=== PATIENT | female | born 1945 | race Two or more races ===

== ENCOUNTER 2021-04-11 08:45 | Inpatient (IN) | payer MEDICARE ==
[~2021-04-11] VITALS: Ht 165.1 cm; Wt 69.9 kg
[2021-04-11] MEDS ORDERED: PIPERACILLIN/TAZ 3.375G PREMIX 50 ML IV ONE (09:00)
[2021-04-11] MEDS ORDERED: VANCOMYCIN 1 G PREMIX 200 ML IV ONE (09:00)
[2021-04-11] MEDS ORDERED: DILTIAZEM HCL 5MG/ML 5ML VIAL IV ONE (09:15)
[2021-04-11] MEDS ORDERED: DILTIAZEM HCL 60MG TABLET PO ONE (09:30)
[2021-04-11] MEDS ORDERED: ENOXAPARIN 80MG/0.8ML SYR SUBCUT ONE (09:30)
[2021-04-11 09:31] LABS: BG BASE EXCESS -1.3 mmol/L (-2.0-2.0); BG CARBOXYHEMOGLOBIN 1.8 % (0.5-1.5); BG DEOXYHEMOGLOBIN 24.5 % (0.0-5.0); BG FRACTION INSPIRED OXYGEN 100; BG HCO3 ACT 21.5 mmol/L (22.0-26.0); BG METHEMOGLOBIN 0.3 % (0.0-1.5); BG OXYHEMOGLOBIN 73.4 % (94.0-97.0); BG PCO2 31.3 mmHg (35.0-45.0); BG PH 7.455 (7.350-7.450); BG PO2 41.1 mmHg (75.0-100.0); BG TOTAL HEMOGLOBIN 15.2 g/dL (12.0-18.0); BG VENT MODE MASK - NRB
[2021-04-11 09:31] LABS: HEMATOCRIT. 44.5 % (36.0-48.0); HEMOGLOBIN. 14.2 g/dL (12.0-16.0); MEAN CORPUSCULAR HEMOGLOBIN 28.7 pg (28.0-32.0); MEAN CORPUSCULAR VOLUME 89.9 fL (81.0-99.0); MEAN PLATELET VOLUME 9.1 fl (7.4-10.4); PLATELET 344 x1000/uL (130-400); RED BLOOD CELL COUNT 4.95 mill/uL (4.2-5.4); RED CELL DISTRIBUTION WIDTH 14.7 % (11.6-14.6)
[2021-04-11 09:38] LABS: CHLORIDE 102 mEq/L (98-107)
[2021-04-11] MEDS ORDERED: SODIUM BICARBONATE 8.4% 1 MEQ/ML 50ML SYR IV ONE ×3 (09:51→15:52)
[2021-04-11] MEDS ORDERED: EPINEPHRINE 0.1MG/ML (1:10,000) 10ML SYR ONE ×5 (09:51→14:48)
[2021-04-11] MEDS ORDERED: SUCCINYLCHOLINE CHLORIDE 200MG/10ML IV ONE ×2 (09:52→10:30)
[2021-04-11] MEDS ORDERED: ATROPINE SULFATE 1MG/10ML SYR ONE (09:52)
[2021-04-11] MEDS ORDERED: ETOMIDATE 2MG/ML 10ML VIAL IV ONE ×2 (09:52→10:30)
[2021-04-11 10:16] LABS: NUCLEATED RED BLOOD CELLS 1 /100 WBC; PLATELET ESTIMATE NORMAL
[2021-04-11] MEDS ORDERED: PROPOFOL 10MG/ML 100ML 100 ML IV ONE (10:30)
[2021-04-11] MEDS ORDERED: DEXTROSE 50% WATER 50ML SYRINGE IV ONE (10:47)
[2021-04-11] MEDS ORDERED: CALCIUM CHLORIDE 1GM/10ML SYR IV ONE (10:47)
[2021-04-11] MEDS ORDERED: NOREPINEPHRINE 8MG/250ML PMX 250 ML IV STA (11:05)
[2021-04-11 13:05] LABS: BG CARBOXYHEMOGLOBIN 0.6 % (0.5-1.5); BG DEOXYHEMOGLOBIN 71.1 % (0.0-5.0); BG FRACTION INSPIRED OXYGEN 100; BG METHEMOGLOBIN 0.9 % (0.0-1.5); BG OXYHEMOGLOBIN 27.4 % (94.0-97.0); BG PCO2 > 183.4 mmHg (35.0-45.0); BG PH < 6.680 (7.350-7.450); BG SAMPLE SITE RIGHT BRACHIAL; BG TOTAL HEMOGLOBIN 11.5 g/dL (12.0-18.0); BG VENT MODE VENT - P/C
[2021-04-11] MEDS ORDERED: SODIUM BICARBONATE 150 MEQ in SODIUM CHLORIDE 0.45% 1,000 ML IV SCH (13:15)
[2021-04-11] MEDS ORDERED: CLONIDINE 0.1MG TABLET PO PRN (14:00)
[2021-04-11] MEDS ORDERED: PIPERACILLIN/TAZ 3.375G PREMIX 50 ML IV SCH (14:00)
[2021-04-11] MEDS ORDERED: MAGNESIUM/ALUMINUM HYDROXIDE/SIMETHICONE 30ML UDC PO PRN (14:00)
[2021-04-11] MEDS ORDERED: DOCUSATE SODIUM 100MG CAPSULE PO PRN (14:00)
[2021-04-11] MEDS ORDERED: ALBUTEROL 6.7GM HFA INHALER ORI PRN (14:00)
[2021-04-11] MEDS ORDERED: ONDANSETRON HCL 4MG/2ML INJ IV PRN (14:00)
[2021-04-11] MEDS ORDERED: DEXT 5%/0.45% NACL 1000ML 1,000 ML IV SCH (14:00)
[2021-04-11] MEDS ORDERED: ACETAMINOPHEN 325MG TABLET PO PRN ×2 (14:00)
[2021-04-11] MEDS ORDERED: GUAIFENESIN 200MG/10ML SUGAR FREE UDC PO PRN (14:00)
[2021-04-11] MEDS ORDERED: NOREPINEPHRINE 8 MG in DEXT 5% WATER 242 ML IV PRN ×2 (14:00→15:15)
[2021-04-11] MEDS ORDERED: EPINEPHRINE 10 MG in SODIUM CHLORIDE 0.9% 240 ML IV PRN ×2 (14:15→16:45)
[2021-04-11] MEDS ORDERED: IPRATROPIUM/ALBUTEROL 0.5-3(2.5)MG/3ML NEB HHN PRN ×2 (14:15)
[2021-04-11 14:38] LABS: INR 1.9; PROTHROMBIN TIME 19.2 sec (9.6-11.0)
[2021-04-11 14:45] LABS: CLARITY URINE CLOUDY (CLEAR); COLOR URINE ORANGE (YELLOW); KETONES URINE 2+ (NEGATIVE); LEUKOCYTE ESTERASE URINE NEGATIVE (NEGATIVE); NITRITE URINE NEGATIVE (NEGATIVE); OCCULT BLOOD URINE 1+ (NEGATIVE); PH URINE 5.5 (4.5-8.0); PROTEIN URINE 2+ (NEGATIVE); SPECIFIC GRAVITY URINE 1.026 (1.005-1.030)
[2021-04-11] MEDS ORDERED: METHYLPREDNISOLONE SOD SUCC 125 MG/2 ML VIAL IV SCH (15:00)
[2021-04-11] MEDS ORDERED: ALBUTEROL 6.7GM HFA INHALER ORI SCH (15:00)
[2021-04-11] MEDS ORDERED: ENOXAPARIN 40MG/0.4ML SYR SUBCUT SCH (15:00)
[2021-04-11 15:04] LABS: D-DIMER > 35.20 mg/L FEU (<0.50)
[2021-04-11] MEDS ORDERED: PANTOPRAZOLE SODIUM 40 MG/VIAL IV SCH (15:30)
[2021-04-11 15:40] LABS: VITAMIN B12 SERUM 1842 pg/mL (211-911)
[2021-04-11 15:42] LABS: FOLIC ACID (FOLATE) SERUM > 20.00 ng/mL (>5.38)
[2021-04-11 15:51] VITALS: BP 69/51
[2021-04-11] MEDS ORDERED: SODIUM BICARBONATE 8.4% 1 MEQ/ML 50ML SYR IV NR (16:00)
[2021-04-11] MEDS ORDERED: PIPERACILLIN/TAZOBACTAM 3.375G in DEXT 5% WATER 50ML IV SCH (16:00)
[2021-04-11 16:06] LABS: *AMPHETAMINES SCREEN URINE NEGATIVE (NEGATIVE); *BARBITURATES SCREEN URINE NEGATIVE (NEGATIVE)
[2021-04-11 16:07] LABS: *BENZODIAZEPINES SCREEN URINE NEGATIVE (NEGATIVE); *COCAINE SCREEN URINE NEGATIVE (NEGATIVE); CANNABINOID URINE SCREEN NEGATIVE (NEGATIVE); METHADONE URINE SCREEN NEGATIVE (NEGATIVE); OPIATES URINE SCREEN NEGATIVE (NEGATIVE); PHENCYCLIDINE URINE SCREEN NEGATIVE (NEGATIVE)
[2021-04-11 17:12] LABS: BG BASE EXCESS -6.3 mmol/L (-2.0-2.0); BG DEOXYHEMOGLOBIN 26.4 % (0.0-5.0); BG FRACTION INSPIRED OXYGEN 100; BG HCO3 ACT 22.6 mmol/L (22.0-26.0); BG METHEMOGLOBIN 0.3 % (0.0-1.5); BG OXYGEN SATURATION 73.5 % (92.0-98.5); BG OXYHEMOGLOBIN 73.3 % (94.0-97.0); BG PCO2 63.8 mmHg (35.0-45.0); BG PH 7.167 (7.350-7.450); BG PO2 52.4 mmHg (75.0-100.0); BG SAMPLE SITE RIGHT RADIAL; BG TOTAL HEMOGLOBIN 10.1 g/dL (12.0-18.0); BG VENT MODE VENT - PRVC
[2021-04-11 17:20] LABS: CHLORIDE 107 mEq/L (98-107)
[2021-04-11 18:58] LABS: FERRITIN 1620 ng/mL (10-291)
[2021-04-11] MEDS ORDERED: VANCOMYCIN 1 G PREMIX 200 ML IV SCH (21:00)
== END 2021-04-11 17:41 | DRG 871 ==
LOC: ER 08:45 → EDBEDREQTM 09:53 → EDBEDREQSVC 09:53 → MICUSO 12:43 → EDBEDREQSVC 12:52 → EDBEDREQ 12:52 → EDBEDREQTM 12:52 → ENRESERV 13:03
PROVIDERS: ADMIT Internal Medicine; ATTEND Internal Medicine
PROC: 5A12012 Performance of Cardiac Output, Single, Manual (ICD-10-PCS; principal; 2021-04-11)
PROC: 5A1935Z Respiratory Ventilation, Less than 24 Consecutive Hours (ICD-10-PCS; 2021-04-11)
PROC: 06HY33Z Insertion of Infusion Device into Lower Vein, Percutaneous Approach (ICD-10-PCS; 2021-04-11)
PROC: B54BZZA Ultrasonography of Right Lower Extremity Veins, Guidance (ICD-10-PCS; 2021-04-11)
PROC: 0BH17EZ Insertion of Endotracheal Airway into Trachea, Via Natural or Artificial Opening (ICD-10-PCS; 2021-04-11)
PROC: 0W9930Z Drainage of Right Pleural Cavity with Drainage Device, Percutaneous Approach (ICD-10-PCS; 2021-04-11)
PROC: 5A09357 Assistance with Respiratory Ventilation, Less than 24 Consecutive Hours, Continuous Positive Airway Pressure (ICD-10-PCS; 2021-04-11)
PROC: XW03396 Introduction of Ceftolozane/Tazobactam Anti-infective into Peripheral Vein, Percutaneous Approach, New Technology Group 6 (ICD-10-PCS; 2021-04-11)
DX: A41.89 Other specified sepsis (principal); U07.1 COVID-19; J96.01 Acute respiratory failure with hypoxia; E43 Unspecified severe protein-calorie malnutrition; G92.8 Other toxic encephalopathy; R65.21 Severe sepsis with septic shock; J93.0 Spontaneous tension pneumothorax; J12.82 Pneumonia due to coronavirus disease 2019; I21.4 Non-ST elevation (NSTEMI) myocardial infarction; E87.1 Hypo-osmolality and hyponatremia; D68.9 Coagulation defect, unspecified; I47.1 Supraventricular tachycardia; I46.9 Cardiac arrest, cause unspecified; J98.2 Interstitial emphysema; E87.5 Hyperkalemia; R74.01 Elevation of levels of liver transaminase levels; E83.39 Other disorders of phosphorus metabolism; E83.42 Hypomagnesemia; Z68.25 Body mass index [BMI] 25.0-25.9, adult
CPT/HCPCS: 31500; 36415; 36556; 36600; 71045; 80053; 80061; 80305; 81003; 82375; 82607; 82728; 82746; 82805; 82962; 83036; 83540; 83550; 83605; 83615; 83735; 84100; 84145; 84484; 85025; 85379; 92950; 93005; 94002; 99291; 99292; J0330; J0461; J2543; J2704; J3370; J3490; J7050; J7060; U0003; U0005